=== PATIENT | female | born 1940 | race Caucasian/White ===

== ENCOUNTER 2016-08-28 20:07 | Inpatient (IN) | payer SELFPAY ==
[~2016-08-28] VITALS: Ht 149.9 cm; Wt 63.5 kg
[2016-08-28] MEDS ORDERED: IV NORMAL SALINE 1000 ML BAG IV ONE ×3 (20:30→22:00)
[2016-08-28] MEDS ORDERED: ONDANSETRON 4 MG/2 ML VIAL IV ONE (20:30)
[2016-08-28] MEDS ORDERED: LOSA50TA21 PO (20:43)
[2016-08-28] MEDS ORDERED: METF850T PO (20:43)
[2016-08-28] MEDS ORDERED: ONDANSETRON 4 MG/2 ML VIAL ONE (20:44)
[2016-08-28] MEDS ORDERED: ACETAMINOPHEN 325 MG TABLET PO ONE (20:45)
--- NOTE | 2016-08-28 20:46 | NUR ---
Per Dr Lindsey, patient does not qualify for Code Sepsis protocol. Will continue to monitor.
[2016-08-28] MEDS ORDERED: ACETAMINOPHEN ES 500 MG TABLET ONE (20:56)
[2016-08-28 21:02] LABS: BASOPHILS # (AUTO) 0.1 K/uL (0.0-8.0); EOSINOPHILS % (AUTO) 0.5 % (0.0-7.0); HEMATOCRIT 37.2 % (37-47); LYMPHOCYTES # (AUTO) 0.8 K/UL (0.8-4.8); LYMPHOCYTES % (AUTO) 10.8 % (20.5-51.5); MEAN CORPUSCULAR HEMOGLOBIN 28.9 UUG (27.0-31.0); MEAN CORPUSCULAR HGB CONC 32 g/dL (32.0-37.0); MEAN CORPUSCULAR VOLUME 89.3 FL (81.0-99.0); MONOCYTES # (AUTO) 0.2 K/UL (0.1-1.30); MONOCYTES % (AUTO) 2.4 % (0.0-11.0); NEUTROPHILS # (AUTO) 6.1 K/UL (1.8-8.9); NEUTROPHILS % (AUTO) 85.3 % (38.5-71.5); PLATELET COUNT (AUTO) 255 K/UL (150-450); RED BLOOD CELL COUNT(AUTO) 4.17 MIL/UL (4.2-5.4); WHITE BLOOD COUNT (AUTO) 7.2 K/UL (4.0-11.2)
[2016-08-28 21:20] LABS: CARBON DIOXIDE 25 mmol/L (21-32); CHLORIDE 98 mmol/L (98-107); CREATININE 2.2 mg/dL (0.6-1.3); GLUCOSE 155 mg/dL (74-106); POTASSIUM 5.2 mmol/L (3.5-5.1); UREA NITROGEN, BLOOD 51 mg/dL (7-18)
[2016-08-28 21:26] LABS: ALANINE AMINOTRANSFERASE 22 U/L (14-59); ALKALINE PHOSPHATASE 154 U/L (50-136); ASPARTATE AMINOTRANSFERASE 26 U/L (15-37); BILIRUBIN,DIRECT 0.1 mg/dL (0.0-0.2); BILIRUBIN,TOTAL 0.4 mg/dL (0.2-1.0); LIPASE 120 U/L (73-393)
--- NOTE | 2016-08-28 21:26 | NUR ---
Patient is in bed with neice at bedside, no further distress noted. no further complaint of pain noted per patient statement. Will continue to monitor patient.
[2016-08-28] MEDS ORDERED: KETOROLAC TROMETHAMINE 15 MG INJ IVP ONE (21:45)
[2016-08-28] MEDS ORDERED: VANCOMYCIN IV 1,000 MG in IV DEXTROSE 5% 250 ML IV ONE (21:45)
[2016-08-28] MEDS ORDERED: PIPERACILLIN SODIUM/TAZOBACTAM 3.375 G in IV DEXTROSE 5% 50 ML IV ONE (21:45)
[2016-08-28] MEDS ORDERED: KETOROLAC TROMETHAMINE 15 MG INJ ONE (22:02)
[2016-08-28] MEDS ORDERED: PIPERACILLIN/TAZOBACTAM/D5W 50 ML IV ONE (22:09)
--- NOTE | 2016-08-28 22:10 | NUR ---
Call #2 placed to [facility] for panel call. Call back pending.
--- NOTE | 2016-08-28 22:13 | NUR ---
STACI SILVERMAN on phone with Nickie KING from [facility]
[2016-08-28 22:15] LABS: BAND % (MANUAL) 13 % (0-10); BASOPHILS % (MANUAL) 0 % (0-2); EOSINOPHILS % (MANUAL) 1 % (0-8); LYMPHOCYTES % (MANUAL) 15 % (20-40); MONOCYTES % (MANUAL) 3 % (2-10); NEUTROPHILS % (MANUAL) 68 % (42-75)
[2016-08-28] MEDS ORDERED: VANCOMYCIN IV 200 ML ONE (22:31)
--- NOTE | 2016-08-28 22:41 | NUR ---
Pt. admitted to Telemetry , under care of Dr. Park/Felicita land [employer] DANCER. Dx: Septicemia. Belongs List completed
[2016-08-28 22:45] VITALS: BP 107/42
--- NOTE | 2016-08-28 22:45 | NUR ---
PT RECEIVED FROM ED VIA [facility]. PT'S SON AT BEDSIDE. BRITISH SPEAKING. V/S STABLE. NO ACUTE DISTRESS NOTED. COMPLAINS OF HEADACHE. WILL ADMINISTER PAIN MEDICATION PRESCRIBED. 93 SINUS RHYTHM ON THE TELE MONITOR. IV ANTIBIOTICS INFUSING. PT ORIENTED TO ROOM. SAFETY MEASURE IMPLEMENTED. CALL LIGHT WITHIN REACH. WILL CONTINUE TO MONITOR.
[2016-08-28] MEDS ORDERED: ACETAMINOPHEN 325 MG TABLET PO PRN (23:00)
[2016-08-28] MEDS ORDERED: ZOLPIDEM 5 MG TABLET PO PRN (23:00)
[2016-08-28] MEDS ORDERED: hydrALAZINE HCL 10 MG TABLET PO PRN (23:00)
[2016-08-28] MEDS ORDERED: ONDANSETRON 4 MG/2 ML VIAL IV PRN (23:00)
[2016-08-28] MEDS ORDERED: MAGNESIUM HYDROXIDE 30 ML LIQUID UDC PO PRN (23:00)
[2016-08-28] MEDS ORDERED: INSULIN REGULAR, HUMAN 300 UNIT/3 ML VIAL SQ PRN (23:00)
[2016-08-28] MEDS ORDERED: HYDROCODONE/APAP 5-325MG TABLET PO PRN (23:00)
[2016-08-28] MEDS ORDERED: DEXTROSE 50% 50 ML DISP.SYRIN IV PRN (23:00)
[2016-08-28] MEDS ORDERED: IV NS 1000 ML 1,000 ML IV PRN (23:00)
[2016-08-28] MEDS ORDERED: ACETAMINOPHEN 325 MG TABLET ONE (23:52)
--- NOTE | 2016-08-29 05:49 | NUR ---
END OF SHIFT NOTES. PT SLEPT WELL THROUGHOUT SHIFT. SON AT BEDSIDE. NEEDS ATTENDED. V/S STABLE. NO ACUTE DISTRESS NOTED. NO COMPLAINTS OF PAIN. 79 SINUS RHYTHM ON THE TELE MONITOR. IVF INFUSING. SAFETY MAINTAINED. CALL LIGHT WITHIN REACH.
[2016-08-29] MEDS ORDERED: PIPERACILLIN/TAZOBACTAM/D5W 3.375 G in PREMIXED 1 EACH IV SCH (06:00)
[2016-08-29] MEDS ORDERED: PIPERACILLIN/TAZOBACTAM/D5W 50 ML IV ONE (06:11)
[2016-08-29] MEDS: BLOOD SUGAR DIAGNOSTIC 1 EACH STRIP VI SCH ×2 (06:14→11:19)
[2016-08-29 06:46] LABS: CARBON DIOXIDE 21 mmol/L (21-32); CHLORIDE 108 mmol/L (98-107); CHOLESTEROL 150 mg/dL (<200); CREATININE 2.1 mg/dL (0.6-1.3); GLUCOSE 103 mg/dL (74-106); HDL CHOLESTEROL 40 mg/dL (40-60); PHOSPHOROUS 3.1 mg/dL (2.5-4.9); POTASSIUM 4.6 mmol/L (3.5-5.1); TRIGLYCERIDES 101 MG/DL (30-150); UREA NITROGEN, BLOOD 48 mg/dL (7-18)
[2016-08-29] MEDS ORDERED: PANTOPRAZOLE SODIUM 40 MG TABLET.DR PO SCH (07:00)
[2016-08-29 07:05] LABS: BASOPHILS % (AUTO) 0.2 % (0.0-2.0); EOSINOPHILS # (AUTO) 0.1 K/uL (0.0-0.7); EOSINOPHILS % (AUTO) 0.5 % (0.0-7.0); MEAN CORPUSCULAR HEMOGLOBIN 30.1 UUG (27.0-31.0); MEAN CORPUSCULAR HGB CONC 34 g/dL (32.0-37.0); MEAN CORPUSCULAR VOLUME 89.7 FL (81.0-99.0); MONOCYTES % (AUTO) 7.6 % (0.0-11.0); NEUTROPHILS # (AUTO) 9.5 K/UL (1.8-8.9); NEUTROPHILS % (AUTO) 75.7 % (38.5-71.5); PLATELET COUNT (AUTO) 198 K/UL (150-450)
[2016-08-29 07:07] LABS: RED BLOOD CELL COUNT(AUTO) 3.08 MIL/UL (4.2-5.4); WHITE BLOOD COUNT (AUTO) 12.6 K/UL (4.0-11.2)
[2016-08-29 07:08] LABS: HEMATOCRIT 27.6 % (37-47); HEMOGLOBIN 9.3 G/DL (12.0-16.0)
[2016-08-29 07:35] LABS: MAGNESIUM 1.1 mg/dL (1.8-2.4)
[2016-08-29 07:44] LABS: BAND % (MANUAL) 25 % (0-10); EOSINOPHILS % (MANUAL) 1 % (0-8); LYMPHOCYTES % (MANUAL) 15 % (20-40); MONOCYTES % (MANUAL) 5 % (2-10); NEUTROPHILS % (MANUAL) 54 % (42-75)
[2016-08-29 08:46] VITALS: BP 120/72
[2016-08-29] MEDS: MAGNESIUM SULFATE/D5W 100 ML IV SCH ×5 (08:46→11:08)
[2016-08-29] MEDS ORDERED: AMLODIPINE 5 MG TABLET PO SCH (09:00)
--- NOTE | 2016-08-29 09:30 | NUR ---
Clinical Pharmacy Note: Vancomycin Dosing per Pharmacy Subjective: Vancomycin IV to continue on this 76 y/o female for sepsis/ febrile disease (waiting for MD note). Patient received vanco 1gm IVPB on 08/28 at 2230 in ED ht 4' 11'' wt 140 lb Objective: BUN 48 Scr 2.1 WBC 12.6 Temperature 101.3 Assessment/Plan: Due to elevated srcr & advanced age, will dose by fall off levels. Will check vanco random level today at 1700 & re-dose if needed. Will monitor renal function daily for further dosing
[2016-08-29 09:50] LABS: *BILIRUBIN,URIN NEGATIVE (NEGATIVE); *BLOOD, URINE Trace-lysed (NEGATIVE); *CLARITY,URINE SLIGHTLY CLOUDY (CLEAR); *COLOR,URINE YELLOW (YELLOW); *KETONES,URINE NEGATIVE (NEGATIVE); *PROTEIN,URINE TRACE (NEGATIVE); *UROBILINOGEN,URINE 0.2 E.U./dl (NORMAL); LEUKOCYTE ESTERASE ,URINE 2+ (NEGATIVE); NITRITE, URINE POSITIVE (NEGATIVE); UGLUCOSE NEGATIVE (NEGATIVE)
[2016-08-29 10:31] LABS: BACTERIA,URINE MANY /HPF (NONE SEEN); SQUAMOUS EPITHELIAL CELL,UR FEW /HPF (NONE SEEN); WBC,URINE TNTC /HPF (0-3)
--- NOTE | 2016-08-29 11:00 | NUR ---
PATIENT REFUSED HER MORNING MEDICATIONS AND STARTED GETTING READY "TO GO HOME". WHEN ASKED THE REASON THAT PATIENT IS LEAVING "I HAVE MY OWN DOCTOR, I WILL GO TO HIM, I WANT TO GO TO [place]". EDUCATION IS PROVIDED TO THE PATIENT, PATIENT WANTS TO LEAVE AMA. ADVISED DR. BOO AND THE CHARGE NURSE. DR. BOO ADVISED THE PATIENT THAT IT IS DANGEROUS TO LEAVE THE HOSPITAL WITHOUT TREATMENT. PATIENT STILL WANTS TO LEAVE, EDUCATION IS PROVIDED. PATIENT REFUSED THE NURSE TO TAKE VITAL SIGNS AND TO FINISH HER MEDICATIONS. NURSE POCKET CLOSER IS ADVISED. PATIENT SIGNED AMA PAPER. Addendum: 08/29/16 at 1137 by EFE MCCULLOUGH RN removed iv, wristband removed Addendum: 08/29/16 at 1138 by EFE MCCULLOUGH RN No s/s of respiratory distress noted. No pain reported. No dizziness noted. Addendum: 08/29/16 at 1426 by EFE MCCULLOUGH RN PT REFUSED D/C EDUCATION/INFORMATION PAPERWORK. PT DID SIGN JAMIL NEGRON PUT IN PT'S CHART
--- NOTE | 2016-08-29 11:29 | NUR ---
The patient left AMA despite the RNs and Dr. Park talking to her and the family using a automotive parts clerk of the severity of her condition and the repercussions of leaving AMA. The patient stated that whatever God wants will happen and her family is in agreement. They stated that the patient will be going straight to [place] and see her PCP there. Provided her with a packet of Community Resources with [facility]. They were very thankful.
[2016-08-29] MEDS ORDERED: METFORMIN HCL 850 MG TABLET PO SCH (13:00)
[2016-08-29] MEDS ORDERED: PIPERACILLIN/TAZOBACTAM/D5W 2.25 G in PREMIXED 1 EACH IV SCH (14:00)
[2016-08-30] MEDS ORDERED: LOSARTAN POTASSIUM 50 MG TABLET PO SCH (09:00)
== END 2016-08-29 11:05 | disposition left against medical advice (07) | DRG 871 ==
LOC: ER 20:08 → TELE 22:29
PROVIDERS: ADMIT Family Medicine; ATTEND Family Medicine
DX: A41.9 Sepsis, unspecified organism (principal); I21.4 Non-ST elevation (NSTEMI) myocardial infarction; N17.0 Acute kidney failure with tubular necrosis; E87.2 Acidosis; E11.22 Type 2 diabetes mellitus with diabetic chronic kidney disease; E83.42 Hypomagnesemia; E83.51 Hypocalcemia; I12.9 Hypertensive chronic kidney disease with stage 1 through stage 4 chronic kidney disease, or unspecified chronic kidney disease; N18.9 Chronic kidney disease, unspecified; Z83.3 Family history of diabetes mellitus
CPT/HCPCS: 36415; 70030-TC; 71010; 83605; 83690; 83735; 84100; 85025; 85730; 87040; 87077; 87086; 93005; 93307; A4663; J1815; J1885; J2405; J2543; J3370; J3475; J7030